=== PATIENT | female | born 1970 | race Caucasian/White ===

== ENCOUNTER → 2019-04-08 14:10 | Outpatient (BNVA) | payer OTHER, SELFPAY | PROVIDERS: Family Provider Family Medicine; PCP Family Medicine; Referring Provider Family Medicine; Visit Provider Otolaryngology | DX: H93.93 Unspecified disorder of ear, bilateral (principal); H69.83 Other specified disorders of Eustachian tube, bilateral; J34.2 Deviated nasal septum; J34.3 Hypertrophy of nasal turbinates | CPT/HCPCS: 96372; 99214; J3301 ==

== ENCOUNTER 2019-10-14 08:04 | Outpatient (CLI) | payer OTHER, SELFPAY ==
--- NOTE | 2019-10-14 08:07 | MM_ITS ---
WS: [id number] BILATERAL SCREENING DIGITAL MAMMOGRAM WITH CAD HISTORY: SCREENING COMPARISON: 09/04/2018, 06/02/2017 and 10/25/2013 Bilateral CC and MLO views submitted. Computer aided detection analyzed. Breast composition: The breasts are extremely dense, which lowers the sensitivity of mammography. No suspicious masses, microcalcifications or architectural distortion. MM/[place] [id number] IMPRESSION: BI-RADS: 1-Negative FOLLOW UP: 1 Year Follow-up
== END 2019-10-14 08:05 | disposition home or self-care (01) ==
LOC: RADSHAW 08:07
PROVIDERS: PCP Family Medicine; Visit Provider Family Medicine
DX: Z12.31 Encounter for screening mammogram for malignant neoplasm of breast (principal)
CPT/HCPCS: 77067

== ENCOUNTER 2020-02-21 08:33 | Outpatient (CLI) | payer OTHER, SELFPAY ==
--- NOTE | 2020-02-21 08:40 | MR_ITS ---
WS: [id number] MRI HEAD WITH CONTRAST WITH ATTENTION TO THE INTERNAL AUDITORY CANALS TECHNIQUE: Sagittal T1, T2 axial, T2 axial flair, axial susceptibility weighted imaging, axial diffus ion weighted images, and coronal T2 images were obtained. Pre and post T1 axial and post T1 coronal i mages. ADC and FSPGR images. Post gadolinium images with attention to the internal auditory canals. A xial fiesta imaging. CLINICAL INFORMATION: DIZZINESS AND GIDDINESS COMPARISON: None. FINDINGS: No evidence of restricted diffusion to suggest acute ischemia. Ventricular system and basal cisterns are patent. No hemosiderin on the susceptibility weighted images. Normal posterior fossa. Normal vasc ular flow voids at the skull base. No extra-axial fluid collections. No evidence of mass or mass effe ct. Normal paranasal sinuses. Mastoid air cells are well aerated. Proximal 7th and 8th cranial nerves are normal. Normal trigeminal nerve root entry zones. No evidence of enhancing IAC or CP angle mass. No abnormal intracranial enhancement. Normal dural venous sinuses. Normal optic chiasm and pituitary inf undibulum. Normal cavernous sinuses and Meckel's cave. MR/MR iac's wo/w con* [id number] IMPRESSION: 1. No evidence of restricted diffusion to suggest acute ischemia. 2. No evidence of enhancing IAC or CP angle mass. Normal trigeminal nerve root entry zones. 3. No abnormal intercranial enhancement. 4. Paranasal sinuses and mastoid air cells are well aerated. 5. No suspicious intracranial signal abnormalities.
== END 2020-02-21 08:34 | disposition home or self-care (01) ==
LOC: RADSHAW 08:39
PROVIDERS: PCP Family Medicine; Visit Provider Specialist
DX: R42 Dizziness and giddiness (principal)
CPT/HCPCS: 70553

== ENCOUNTER 2020-11-13 08:04 | Outpatient (CLI) | payer OTHER, SELFPAY ==
--- NOTE | 2020-11-13 08:10 | MM_ITS ---
WS: [id number] BILATERAL SCREENING DIGITAL MAMMOGRAM WITH CAD HISTORY: SCREENING COMPARISON: 10/14/2019 and 09/04/2018 Bilateral CC and MLO views submitted. Computer aided detection analyzed. Breast composition: The breasts are extremely dense, which lowers the sensitivity of mammography. No suspicious masses, microcalcifications or architectural distortion. Benign calcification lateral RIGH T breast. MM/[place] [id number] IMPRESSION: BI-RADS: 2-Benign FOLLOW UP: 1 Year Follow-up
== END 2020-11-13 08:05 | disposition home or self-care (01) ==
LOC: RADSHAW 08:08
PROVIDERS: PCP Family Medicine; Visit Provider Nurse Practitioner Women's Health
DX: Z12.31 Encounter for screening mammogram for malignant neoplasm of breast (principal)
CPT/HCPCS: 77067

== ENCOUNTER → 2021-12-03 08:35 | Outpatient (BNVA) | payer OTHER, SELFPAY | PROVIDERS: PCP Family Medicine; Visit Provider Nurse Practitioner Women's Health | DX: Z01.419 Encounter for gynecological examination (general) (routine) without abnormal findings (principal); N93.9 Abnormal uterine and vaginal bleeding, unspecified | CPT/HCPCS: 87624 ==

== ENCOUNTER 2021-12-17 07:51 | Outpatient (CLI) | payer OTHER, SELFPAY ==
--- NOTE | 2021-12-17 08:00 | MM_ITS ---
WS: [id number] BILATERAL SCREENING DIGITAL TOMOSYNTHESIS MAMMOGRAM WITH CAD HISTORY: Screening exam. COMPARISON: 11/13/2020 and 10/14/2019 Bilateral CC and MLO views with tomosynthesis and synthetic mammography submitted. Computer aided det ection analyzed. Breast composition: The breasts are extremely dense, which lowers the sensitivity of mammography. No suspicious masses, microcalcifications or architectural distortion. No interval change. No architectu ral distortion or mass. MM/[place] [id number] IMPRESSION: BI-RADS: 2-Benign FOLLOW UP: 1 Year Follow-up
== END 2021-12-17 07:52 | disposition home or self-care (01) ==
PROVIDERS: PCP Family Medicine; Visit Provider Nurse Practitioner Women's Health
DX: Z12.31 Encounter for screening mammogram for malignant neoplasm of breast (principal)
CPT/HCPCS: 77063; 77067

== ENCOUNTER 2023-01-27 07:34 | Outpatient (CLI) | payer OTHER, SELFPAY ==
--- NOTE | 2023-01-27 07:43 | MM_ITS ---
WS: [id number] SCREENING DIGITAL TOMOSYNTHESIS MAMMOGRAM WITH CAD HISTORY: SCREEN COMPARISON: 12/17/2021 and 11/13/2020 Bilateral CC and MLO with tomosynthesis views submitted. Synthetic mammography reviewed. Computer aid ed detection analyzed. Breast composition: The breasts are extremely dense, which lowers the sensitivity of mammography. No suspicious masses, microcalcifications or architectural distortion. IMPRESSION: MM/[place] [id number] BI-RADS: 1-Negative FOLLOW UP: 1 Year Follow-up
== END 2023-01-27 07:35 | disposition home or self-care (01) ==
LOC: RAD 07:34
PROVIDERS: PCP Family Medicine; Visit Provider Family Medicine
DX: Z12.31 Encounter for screening mammogram for malignant neoplasm of breast (principal)
CPT/HCPCS: 77063; 77067

== ENCOUNTER → 2023-06-19 08:57 | Outpatient (BNVA) | payer OTHER, SELFPAY | PROVIDERS: PCP Family Medicine; Visit Provider Nurse Practitioner Family | DX: J02.9 Acute pharyngitis, unspecified (principal) | CPT/HCPCS: 87880 ==

== ENCOUNTER 2023-07-20 06:42 | Day surgery (SDC) | payer OTHER, SELFPAY ==
--- NOTE | 2023-07-20 06:40 | W.PM.OPSFHP ---
Same Day Surgery H&P Indication for Procedure/HPI DATE OF PROCEDURE: July 20, 2023 CHIEF COMPLAINT/INDICATIONFOR SURGICAL PROCEDURE: need for screening colonoscopy PREOP DIAGNOSIS: need for screening colonoscopy PLANNED PROCEDURE: Operation Date: 07/20/23 07:40 [place] [address] colon G0121 screen colon A risk Z12.11(Not Applicable) - Junior Mcmahon MD Medications/Allergies* Home Medications Medication Instructions Recorded Confirmed Type betahistine 24 mg PO BID 01/27/23 07/17/23 History Allergies/Adverse Reactions Allergy/AdvReac Type Severity Reaction Status Date / Time shellfish derived Allergy unknown Verified 07/17/23 10:03 Pertinent History/Comorbid Conditions* Medical History (Updated 11/20/20 @ 10:06 by Ivone Carlson APN, VERNELL) No pertinent past medical history neghx:htn,dm,thyroid,dvt/pe PCP: [facility] Abnormal uterine bleeding (AUB) Surgical History (Updated 11/15/19 @ 09:18 by Ivnoe Carlson APN, VRENELL) H/O adenoidectomy Family History (Updated 12/03/21 @ 08:45 by Paola Palacios) Diabetes Grandmother Paternal grandmother Breast cancer Grandmother Maternal--- dx'd in her late 70's Stroke Grandmother Paternal grandfather Grandfather Maternal grandfather Denies family history of Colon cancer Hyperlipidemia Hypertension Uterine cancer Thyroid disease Social History Smoking and tobacco/nicotine status: never used tobacco/nicotine Alcohol intake: current Alcohol intake frequency: holidays/special occasions only Pertinent Exam Findings alert, oriented x 3 and clear to auscultation bilaterally Recommendations Surgery/Procedure today Coding Level of Care Code Acute Code for Chg Fwd
[2023-07-20 06:52] VITALS: BP 143/94; PULSE 71; RESP 16; TEMP 37.2; O2SAT 100
[2023-07-20 06:59] VITALS: BMI 20.5
[2023-07-20] MEDS: sodium chloride 0.9% 1,000 ML 30 ML IV (07:18)
--- NOTE | 2023-07-20 07:19 | ANES.PREANE2 ---
Pre-Anesthetic Assessment Height/Weight: Height 1.73 m Weight 61.235 kg Temp Pulse Resp BP Pulse Ox O2 Del Method 98.9 F 71 16 143/94 100 Room Air 07/20/23 06:52 07/20/23 06:52 07/20/23 06:52 07/20/23 06:52 07/20/23 06:52 07/20/23 06:52 Preop Diagnosis: need for screening colonoscopy Operation Date: 07/20/23 07:40 Proposed Procedures p 48111 colon G0121 screen colon A risk Z12.11(Not Applicable) - Junior Mcmahon MD Familial anesthetic complications: None Was Beta Phoenix taken within 24 hours: N/A Was Clonidine taken within 24 hours: N/A Last intake: Intake Last Liquid Date 07/19/23 Last Liquid Time 22:00 Last Solid Date 07/18/23 Last Solid Time 20:30 Social No alcohol and No tobacco Exam alert, oriented x 3 and regular rate & rhythm Airway Mallampati: Class I Dentition: full History/ROS No significant history except as noted Pulmonary None reported CV/HEM None reported None reported Hepatic None reported GI None reported Metabolic None reported Musc/skel None reported Neuropsych None reported Anesthetic Plan ASA status: 1 Anesthesia: Anesthesia Evaluation and MAC Risk of > 500 ml blood loss (7ml/kg in children): No Medications/Allergies Home Medications Medication Instructions Recorded Confirmed Last Taken Type betahistine 24 mg PO BID 01/27/23 07/20/23 07/19/23 History norgestimate 0.25 mg-ethinyl 1 tab PO QDAY #84 tabs 02/01/23 07/20/23 07/19/23 Rx estradiol 35 mcg tablet (Sprintec (28)) Allergies Allergy/AdvReac Type Severity Reaction Status Date / Time shellfish derived Allergy unknown Verified 07/17/23 10:03 Current Medications Generic Name Dose Route Start Last Admin Trade Name Freq PRN Reason Stop Dose Admin Sodium Chloride 1,000 mls @ 30 mls/hr 07/20/23 07:00 07/20/23 07:18 Sodium Chloride 0.9% IV 30 mls/hr .Q24H PAOLO Administration PFSH Anesthesia Medical History No pertinent past medical history neghx:htn,dm,thyroid,dvt/pe PCP: [facility] Abnormal uterine bleeding (AUB) Surgical History H/O adenoidectomy Family History Grandmother Breast cancer Maternal--- dx'd in her late 70's Diabetes Paternal grandmother Stroke Paternal grandfather Grandfather Stroke Maternal grandfather Denies family history of Colon cancer Hyperlipidemia Hypertension Uterine cancer Thyroid disease Social History Smoking and tobacco/nicotine status: never used tobacco/nicotine Alcohol intake: current Alcohol intake frequency: holidays/special occasions only Female Reproductive History Date of last menstrual period: 07/11/23 Data Anesthesia Cardiac Studies: No Data to Display
[2023-07-20 08:15] VITALS: BP 102/67; PULSE 63; RESP 16; TEMP 36.7; O2SAT 99
--- NOTE | 2023-07-20 08:18 | ANE.PACU2 ---
Inpatient post-anesthesia follow up: Airway intact: Yes Vital signs: Temperature 98.1 F Pulse Rate 62 Respiratory Rate 18 Blood Pressure 102/67 Pulse Oximetry 99 Oxygen Delivery Me thod Room Air Oxygen Flow Rate Fraction of Inspir ed Oxygen Hydration adequate: Yes Nausea and vomiting: No Pain level: 0 Mental status: Baseline
[2023-07-20 08:37] VITALS: BP 103/58; PULSE 62; RESP 16; O2SAT 93
== END 2023-07-20 08:50 | disposition home or self-care (01) ==
PROVIDERS: PCP Family Medicine; Visit Provider Surgery
PROC: 0DJD8ZZ Inspection of Lower Intestinal Tract, Via Natural or Artificial Opening Endoscopic (ICD-10-PCS; CPT 45378; principal; 2023-07-20 07:40)
DX: Z12.11 Encounter for screening for malignant neoplasm of colon (principal); K64.8 Other hemorrhoids
CPT/HCPCS: 45378; J2704; J7030

== ENCOUNTER → 2024-01-12 11:29 | Outpatient (BNVA) | payer OTHER, SELFPAY | PROVIDERS: PCP Family Medicine; Visit Provider Nurse Practitioner Women's Health | DX: Z01.419 Encounter for gynecological examination (general) (routine) without abnormal findings (principal) | CPT/HCPCS: 88175 ==

== ENCOUNTER 2024-02-05 09:55 | Outpatient (CLI) | payer OTHER, SELFPAY ==
--- NOTE | 2024-02-05 10:00 | MM_ITS ---
WS: [id number] BILATERAL SCREENING DIGITAL TOMOSYNTHESIS MAMMOGRAM WITH CAD HISTORY: Z12.31 - Encounter for screening mammogram for malignant ... COMPARISON: 01/27/2023, 12/17/2021 Bilateral CC and MLO views with tomosynthesis and synthetic mammography submitted. Computer aided det ection analyzed. Breast composition: The breasts are heterogeneously dense, which may obscure small masses. No suspici ous masses, microcalcifications or architectural distortion. MM/MM scr BI tomosynthesis [id number] IMPRESSION: BI-RADS: 1 - Negative FOLLOW UP: 1 Year Follow-up
== END 2024-02-05 09:56 | disposition home or self-care (01) ==
LOC: RAD 09:56
PROVIDERS: PCP Family Medicine; Visit Provider Nurse Practitioner Women's Health
DX: Z12.31 Encounter for screening mammogram for malignant neoplasm of breast (principal); R92.333 Mammographic heterogeneous density, bilateral breasts
CPT/HCPCS: 77063; 77067

== ENCOUNTER → 2024-12-09 11:46 | Outpatient (BNVA) | payer OTHER, SELFPAY | PROVIDERS: Visit Provider Family Medicine Adult Medicine | DX: R39.9 Unspecified symptoms and signs involving the genitourinary system (principal) | CPT/HCPCS: 81000 ==

== ENCOUNTER 2025-02-27 16:54 | Outpatient (CLI) | payer SELFPAY ==
[2025-02-27 19:09] LABS: Thyroid Stimulating Hormone 1.38 uIU/mL (0.27-4.20)
== END 2025-02-27 16:55 | disposition home or self-care (01) ==
LOC: LAB 16:57
PROVIDERS: PCP Nurse Practitioner Women's Health; Visit Provider Dermatology
DX: Z01.89 Encounter for other specified special examinations (principal)
CPT/HCPCS: 36415; 84443

== ENCOUNTER 2025-03-03 08:13 | Outpatient (CLI) | payer OTHER, SELFPAY ==
--- NOTE | 2025-03-03 08:21 | MM_ITS ---
WS: [id number] BILATERAL SCREENING DIGITAL TOMOSYNTHESIS MAMMOGRAM WITH CAD HISTORY: SCREENING COMPARISON: 02/05/2024, 01/27/2023, 12/17/2021 Bilateral CC and MLO views with tomosynthesis and synthetic mammography submitted. Computer aided detection analyzed. Breast composition: The breasts are extremely dense, which lowers the sensitivity of mammography. No suspicious masses, microcalcifications or architectural distortion. Benign calcifications in the posterior RIGHT breast. MM/MM scr tomosynthesis [id number] IMPRESSION: BI-RADS: 2 - Benign FOLLOW UP: 1 Year Follow-up
== END 2025-03-03 08:14 | disposition home or self-care (01) ==
LOC: RAD 08:15
PROVIDERS: PCP Nurse Practitioner Women's Health; Visit Provider Nurse Practitioner Women's Health
DX: Z12.31 Encounter for screening mammogram for malignant neoplasm of breast (principal); R92.343 Mammographic extreme density, bilateral breasts; R92.1 Mammographic calcification found on diagnostic imaging of breast
CPT/HCPCS: 77063; 77067